=== PATIENT | male | born 1970 | race Hispanic/Latino ===

== ENCOUNTER 2021-03-28 00:44 | Emergency (ER) | payer SELFPAY ==
[~2021-03-28] VITALS: Ht 177.8 cm; Wt 95.3 kg
[2021-03-28 00:46] VITALS: BP 165/96
[2021-03-28 01:26] LABS: BASOPHILS % (AUTO) 0.7 % (0.0-5.0); EOSINOPHILS % (AUTO) 3.8 % (0.0-8.0); LYMPHOCYTES % (AUTO) 62.3 % (21.0-51.0); MEAN CORPUSCULAR HEMOGLOBIN 31.7 pg (27.0-33.0); MEAN CORPUSCULAR HGB CONC 33.8 g/dL (32.0-36.0); MEAN CORPUSCULAR VOLUME 93.8 fL (79-99); MONOCYTES % (AUTO) 8.6 % (3.0-13.0); NEUTROPHILS % (AUTO) 24.4 % (40.0-77.0); PLATELET COUNT (AUTO) 170 K/uL (130-400); RED BLOOD CELL COUNT(AUTO) 4.48 MIL/uL (4.50-6.20); WHITE BLOOD COUNT (AUTO) 5.6 K/uL (4.8-10.8)
[2021-03-28] MEDS ORDERED: ASPIRIN 325MG TAB PO ONE (01:30)
[2021-03-28 01:36] LABS: CREATININE 0.7 mg/dL (0.5-1.5); POTASSIUM 3.7 mmol/L (3.5-5.1)
[2021-03-28 01:40] LABS: ALBUMIN 3.7 g/dL (3.5-5.0); B-TYPE NATRIURETIC PEPTIDE 6 pg/mL (0-100); BILIRUBIN,TOTAL 0.2 mg/dL (0.2-1.0)
[2021-03-28 02:15] LABS: LIPASE 377 U/L (114-286)
[2021-03-28 02:16] LABS: ALCOHOL, BLOOD 340 mg/dL (0-10)
== END 2021-03-28 02:17 | disposition left against medical advice (07) ==
LOC: EDH 00:44
DX: R07.89 Other chest pain (principal); I10 Essential (primary) hypertension; Z20.822 Contact with and (suspected) exposure to COVID-19; F17.210 Nicotine dependence, cigarettes, uncomplicated; Z79.82 Long term (current) use of aspirin
CPT/HCPCS: 36415; 71045; 80053; 83690; 83880; 84484; 85025; 85378; 87635; 93005; 99285; C9803

== ENCOUNTER 2023-02-09 10:14 | Emergency (ER) | payer BC, OTHER ==
[~2023-02-09] VITALS: Ht 177.8 cm; Wt 99.8 kg
[2023-02-09 11:11] LABS: BASOPHILS # (AUTO) 0.08 K/uL (0.00-0.20); BASOPHILS % (AUTO) 1.1 % (0.0-5.0); EOSINOPHILS # (AUTO) 0.23 K/uL (0.00-0.70); EOSINOPHILS % (AUTO) 3.3 % (0.0-8.0); HEMATOCRIT 28.4 % (42-54); IMMATURE GRANULOCYTE ABSOLUTE 0.04 K/uL (0-1); LYMPHOCYTES # (AUTO) 1.8 K/uL (1.0-4.8); LYMPHOCYTES % (AUTO) 25.8 % (21.0-51.0); MEAN CORPUSCULAR HGB CONC 33.5 g/dL (32.0-36.0); MEAN CORPUSCULAR VOLUME 107.6 fL (79-99); MONOCYTES # (AUTO) 0.7 K/uL (0.1-1.0); MONOCYTES % (AUTO) 9.8 % (3.0-13.0); NEUTROPHILS # (AUTO) 4.1 K/uL (1.8-7.7); NEUTROPHILS % (AUTO) 59.4 % (40.0-77.0); PLATELET COUNT (AUTO) 86 K/uL (130-400); RED BLOOD CELL COUNT(AUTO) 2.64 MIL/uL (4.50-6.20); RED CELL DISTRIBUTION WIDTH 14.8 % (11.0-15.5)
[2023-02-09 11:12] LABS: APPEARANCE,URINE SL CLOUDY (CLEAR); BILIRUBIN,URINE LARGE mg/dL (NEGATIVE); GLUCOSE, URINE (UA) 100 mg/dL (NEGATIVE); KETONES,URINE 15 mg/dL (NEGATIVE); LEUKOCYTE ESTERASE ,URINE TRACE Leu/uL (NEGATIVE); NITRATE,URINE POSITIVE (NEGATIVE); OCCULT BLOOD,URINE NEGATIVE (NEGATIVE); PH,URINE 6.5 (5.0-8.0); PROTEIN,URINE 100 mg/dL (NEGATIVE); UROBILINOGEN,URINE >=8.0 mg/dL (0.2-1.0)
[2023-02-09 11:13] LABS: CREATININE 0.8 mg/dL (0.5-1.5); POTASSIUM 3.3 mmol/L (3.5-5.1)
[2023-02-09 11:16] LABS: INR 1.99 (0.85-1.15); PARTIAL THROMBOPLASTIN TIME 39.3 SEC (26.3-35.5); PROTHROMBIN TIME 22.1 SEC (9.6-11.6)
[2023-02-09 11:18] LABS: ALBUMIN 1.5 g/dL (3.5-5.0); BILIRUBIN,TOTAL 5.1 mg/dL (0.2-1.0); TOTAL PROTEIN, SERUM 9.3 g/dL (6.0-8.3)
[2023-02-09 11:26] LABS: ADD UA MICROSCOPIC YES; COLOR,URINE ORANGE (YELLOW)
[2023-02-09] MEDS ORDERED: ALBUMIN (HUMAN) 25% 200 ML IV ONE (11:31)
[2023-02-09] MEDS ORDERED: SODIUM BICARB 50MEQ 50ML VIAL 50 ML ONE (11:31)
[2023-02-09 11:53] LABS: BACTERIA,URINE Rare /HPF (None Seen); MUCUS,URINE Many LPF (None Seen); RBC,URINE 0-1 /HPF (0-1); SQUAMOUS EPITHELIAL CELL,UR Rare /HPF (0-2)
[2023-02-09] MEDS ORDERED: CEFTRIAXONE 1G VIAL IVPB ONE (12:30)
[2023-02-09] MEDS ORDERED: POTASSIUM BICARB/CIT AC 25 MEQ TABLET.EFF PO ONE (12:30)
[2023-02-09] MEDS ORDERED: CEPH500B PO (13:53)
[2023-02-09 14:35] VITALS: BP 118/82; PULSE 95; RESP 18; O2SAT 98
[2023-02-09 15:11] LABS: BODY FLUID RBC 854 /cu. mm.; BODY FLUID WBC 173 /cu. mm.
[2023-02-09 15:40] LABS: APPEARANCE BODY FLUID CLEAR (CLEAR); COLOR,BODY FLUID YELLOW (LT YELLOW); SPECIMENTYPE,BODY FLUID ASCITES; TOTAL VOLUME,BODY FLUID 12200 mL
[2023-02-09 17:31] LABS: BF LYMPHOCYTE 20 %; BF MACROPHAGE 51; BF MESOTHELIAL 2 %; BF MONOCYTE 1 %; BF OTHER CELLS 20; BF TOTAL CELLS COUNTED 100
== END 2023-02-09 14:38 | disposition home or self-care (01) ==
LOC: EDH 10:14
DX: K76.89 Other specified diseases of liver (principal); D64.9 Anemia, unspecified; N39.0 Urinary tract infection, site not specified; I10 Essential (primary) hypertension; F17.200 Nicotine dependence, unspecified, uncomplicated
CPT/HCPCS: 49083; 99285; 74176; 96365; 96367; 83735; 84484; 80053; 83880; 82140; 83690; 85025; 89051; 85610; 85730; 86850; 86900; 86901; 87071; 87088; 87205; 81001; 36415; 88305; 88112; 93005; P9046; J3490; J0696; C1729